=== PATIENT | female | born 1970 | race Caucasian/White ===

== ENCOUNTER 2021-10-08 20:20 | Inpatient (IN) | payer OTHER ==
[~2021-10-08] VITALS: Ht 157.5 cm; Wt 68.2 kg
[2021-10-08] MEDS ORDERED: HYDROcodone/acetaminophen 10/325mg tab PO ONE (21:35)
[2021-10-08] MEDS ORDERED: morphine 4 MG/ML inj SYRINge IV ONE (23:35)
[2021-10-08] MEDS ORDERED: ondansetron/PF 4mg/2ml inj IV ONE (23:35)
[2021-10-09] MEDS ORDERED: morphine 4 MG/ML inj SYRINge ONE (00:02)
[2021-10-09] MEDS ORDERED: morphine 2 MG/ML inj. syringe ONE (00:05)
[2021-10-09] MEDS ORDERED: magnesium hydroxide 30ml (MOM) UD suspension PO PRN (00:55)
[2021-10-09] MEDS ORDERED: HYDROcodone/acetaminophen 5mg/325mg tablet PO PRN (00:55)
[2021-10-09] MEDS ORDERED: diphenhydrAMINE 50 mg/ml inj IV PRN (00:55)
[2021-10-09] MEDS ORDERED: mag hydrox/Alum hydrox/simeth 30ml oral suspension PO PRN (00:55)
[2021-10-09] MEDS ORDERED: morphine 2 MG/ML inj. syringe IV PRN (00:55)
[2021-10-09] MEDS ORDERED: ondansetron 4mg rapidly disintigrating tab PO PRN (00:55)
[2021-10-09] MEDS ORDERED: ondansetron/PF 4mg/2ml inj IV PRN (00:55)
[2021-10-09] MEDS ORDERED: acetaminophen 325mg tablet PO PRN ×2 (00:55)
[2021-10-09] MEDS ORDERED: diphenhydrAMINE 25mg capsule PO PRN (00:55)
[2021-10-09] MEDS ORDERED: bisacodyl 10mg suppository rectal RC PRN (00:55)
[2021-10-09] MEDS ORDERED: acetaminophen 650mg rectal suppository RC PRN (00:55)
[2021-10-09] MEDS: normal saline 1000ml 1,000 ML IV SCH ×3 (01:12→20:55)
[2021-10-09] MEDS ORDERED: FLUT16SP26 BOTHNARES (01:17)
[2021-10-09] MEDS ORDERED: CITA40TA17 PO (01:17)
[2021-10-09] MEDS ORDERED: VARE1TAB24 PO (01:17)
[2021-10-09] MEDS ORDERED: ADV50100 IH (01:17)
[2021-10-09 02:32] LABS: HEMOGLOBIN A1C 5.1 % (4.5-6.2)
[2021-10-09 02:40] LABS: APTT 26 SECONDS (22-32)
[2021-10-09 02:48] LABS: ETHANOL < 0.010 GM/DL (0.0-0.010); MAGNESIUM 1.7 MG/DL (1.5-2.4); PHOSPHORUS 3.6 MG/DL (2.3-4.5)
[2021-10-09] MEDS: HYDROmorphone inj. 0.5 MG/0.5 ML DISP.SYRIN IV PRN ×2 (03:41→08:45)
[2021-10-09] MEDS: morphine 2 MG/ML inj. syringe IV PRN ×3 (05:36→16:20)
[2021-10-09 06:10] LABS: CLARITY,URINE SLIGHTLY CLOUDY (Clear); COLOR,URINE YELLOW (Yellow); GLUCOSE, URINE NEGATIVE (Neg); KETONES,URINE NEGATIVE (Neg); LEUKOCYTE ESTERASE ,URINE NEGATIVE (Neg); NITRITES, URINE POSITIVE (Neg); OCCULT BLOOD,URINE SMALL (Neg); PH,URINE 5.5 (4.8-8.0); PROTEIN,URINE NEGATIVE (Neg); UA COLLECTION TYPE CLN CATCH MIDSTREAM; UROBILINOGEN,URINE 0.2 E.U/dL (0.2-1.0)
[2021-10-09 06:17] LABS: BACTERIA,URINE 4+ /HPF (Neg); MUCUS STRANDS NONE SEEN /LPF (Neg); SQUAMOUS EPITHELIAL CELL,UR FEW /LPF (FEW)
[2021-10-09] MEDS: albuterol 2.5 MG/3 ML nebule NEB SCH ×4 (07:05→19:56)
[2021-10-09] MEDS: budesonide 0.5mg/2ml UD nebule IH SCH ×2 (07:05→19:56)
[2021-10-09] MEDS: VARENICLINE TARTRATE 1 MG PO SCH ×2 (08:00→20:00)
[2021-10-09] MEDS: fluticasone nasal spray 16GM bottle NS SCH (08:00)
[2021-10-09] MEDS: docusate sod 100mg capsule PO SCH ×2 (08:00→20:00)
[2021-10-09] MEDS: HYDROcodone/acetaminophen 10/325mg tab PO PRN ×2 (08:27→12:37)
[2021-10-09] MEDS: citalopram 20mg tablet PO SCH (08:31)
[2021-10-09 08:37] LABS: URINE AMPHETAMINE SCREEN NEGATIVE (Neg); URINE BARBITUATE SCREEN NEGATIVE (Neg); URINE BENZODIAZEPINES SCREEN POSITIVE (Neg); URINE CANNABINOID SCREEN NEGATIVE (Neg); URINE COCAINE SCREEN NEGATIVE (Neg); URINE METHADONE SCREEN NEGATIVE (Neg); URINE OPIATE SCREEN POSITIVE (Neg); URINE PHENCYCLIDINE SCREEN NEGATIVE (Neg)
[2021-10-09] MEDS ORDERED: potassium CL 10mEq/100ml bag 100 ML IV PRN (10:45)
[2021-10-09] MEDS ORDERED: magnesium 4gm in 100ml NS 100 ML IV PRN (10:45)
[2021-10-09] MEDS ORDERED: potassium Cl 20 mEq SR tablet PO PRN ×2 (10:45)
[2021-10-09] MEDS ORDERED: magnesium Cl slow-release 64mg tablet PO PRN (10:45)
[2021-10-09] MEDS: cyclobenzaprine 10mg tablet PO PRN (10:48)
--- NOTE | 2021-10-09 13:37 | NUR ---
PT. REFUSED 1400 SVN. NO WHEEZING-WANTED TO SLEEP
--- NOTE | 2021-10-09 16:28 | NUR ---
RELIEVING RN FOR BREAK, PT IS RESTING QUIETLY ON HOSPITAL BED, RESP EVEN AND UNLABORED, WAITING FOR BED ASSIGNMENT,
--- NOTE | 2021-10-09 17:44 | NUR ---
pt was able to sit up in the bed today. pt placed in hospital bed. pt tolerated some movement which is an improvement from this morning.
[2021-10-09] MEDS: K and/or MAG REPLACEMENT MC SCH (20:00)
[2021-10-09] MEDS ORDERED: temazepam 15mg capsule PO PRN (21:00)
[2021-10-10] MEDS: albuterol 2.5 MG/3 ML nebule NEB SCH ×5 (03:00→20:39)
[2021-10-10] MEDS: cyclobenzaprine 10mg tablet PO PRN (06:36)
[2021-10-10 07:32] LABS: BASOPHILS % (AUTO) 0.4 % (0-1); EOSINOPHILS % (AUTO) 0 % (0-6); HEMATOCRIT 29.9 % (35.0-45.0); HEMOGLOBIN 10.2 g/dl (12.0-16.0); LYMPHOCYTES # (AUTO) 0.4 X10'3 (1.1-4.8); LYMPHOCYTES % (AUTO) 8.1 % (21-51); MEAN CORPUSCULAR HEMOGLOBIN 30.3 PG (27.0-31.0); MEAN CORPUSCULAR HGB CONC 34.2 g/dL (33.0-36.5); MEAN CORPUSCULAR VOLUME 88.7 FL (78-98); MEAN PLATELET VOLUME 7.7 FL (7.4-10.4); MONOCYTES # (AUTO) 0.3 X10'3 (0-0.9); NEUTROPHILS # (AUTO) 4.1 X10'3 (1.8-7.7); NEUTROPHILS % (AUTO) 84.5 % (42-75); PLATELET COUNT 164 X10'3 (140-440); RED BLOOD COUNT 3.37 X10'6 (4.20-5.60); RED CELL DISTRIBUTION WIDTH 13.6 % (11.5-14.5); WHITE BLOOD COUNT 4.8 X10'3 (4.5-11.0)
[2021-10-10] MEDS: VARENICLINE TARTRATE 1 MG PO SCH ×2 (07:35→20:00)
[2021-10-10] MEDS: fluticasone nasal spray 16GM bottle NS SCH (07:36)
[2021-10-10] MEDS: budesonide 0.5mg/2ml UD nebule IH SCH ×3 (07:44→20:39)
[2021-10-10] MEDS: citalopram 20mg tablet PO SCH (07:45)
[2021-10-10] MEDS: docusate sod 100mg capsule PO SCH (07:45)
[2021-10-10] MEDS: normal saline 1000ml 1,000 ML IV SCH ×2 (07:46→17:08)
[2021-10-10 07:59] LABS: ALANINE AMINOTRANSFERASE 12 U/L (12-78); ALBUMIN 2.6 G/DL (3.4-5.0); ALBUMIN/GLOBULIN RATIO 0.8 (1.1-1.5); ALKALINE PHOSPHATASE 48 IU/L (46-116); ANION GAP 9 (8-16); ASPARTATE AMINO TRANSFERASE 15 U/L (10-37); BILIRUBIN,TOTAL 0.4 MG/DL (0.1-1.0); BLOOD UREA NITROGEN 5 MG/DL (7-18); BUN/CREATININE RATIO 7.9 (6.6-38.0); CALCIUM 7.8 MG/DL (8.5-10.1); CHLORIDE 105 MMOL/L (99-107); CHOL/HDL RATIO 2.4 (0.00-4.99); CHOLESTEROL 164 MG/DL (0-200); CREATININE 0.63 MG/DL (0.40-0.90); GLUCOSE 93 MG/DL (70-104); HDL CHOLESTEROL 69 MG/DL (35-60); LDL CHOLESTEROL 73 MG/DL (50-100); MAGNESIUM 1.2 MG/DL (1.5-2.4); PHOSPHORUS 1.6 MG/DL (2.3-4.5); POTASSIUM 3.4 MMOL/L (3.5-5.1); SODIUM 137 MMOL/L (135-145); TOTAL CARBON DIOXIDE 23.3 MMOL/L (24-32); TOTAL PROTEIN 5.8 G/DL (6.4-8.2); TRIGLYCERIDES 67 MG/DL (20-135); eGFR > 90 ML/MIN
[2021-10-10] MEDS: K and/or MAG REPLACEMENT MC SCH ×2 (08:00→20:00)
--- NOTE | 2021-10-10 12:04 | NUR ---
PT TO MRI
[2021-10-10] MEDS ORDERED: cyclobenzaprine 10mg tablet PO PRN (16:00)
[2021-10-10 19:48] VITALS: BP 115/63
[2021-10-10 22:00] VITALS: BP 111/66
[2021-10-10] MEDS: heparin, porcine 5000 units/ml vial SQ SCH (22:00)
[2021-10-10] MEDS: ciprofloxacin 250mg tablet PO SCH (22:01)
[2021-10-10] MEDS: HYDROcodone/acetaminophen 10/325mg tab PO PRN (22:01)
[2021-10-11] MEDS: normal saline 1000ml 1,000 ML IV SCH ×2 (02:55→12:55)
[2021-10-11] MEDS: albuterol 2.5 MG/3 ML nebule NEB SCH ×3 (03:00→14:28)
[2021-10-11] MEDS: HYDROcodone/acetaminophen 10/325mg tab PO PRN ×2 (05:37→13:43)
[2021-10-11 06:00] VITALS: BP 111/66
[2021-10-11 07:13] LABS: BASOPHILS % (AUTO) 0.6 % (0-1); EOSINOPHILS % (AUTO) 0.2 % (0-6); HEMATOCRIT 30.7 % (35.0-45.0); HEMOGLOBIN 10.5 g/dl (12.0-16.0); LYMPHOCYTES # (AUTO) 0.8 X10'3 (1.1-4.8); LYMPHOCYTES % (AUTO) 14.5 % (21-51); MEAN PLATELET VOLUME 7.8 FL (7.4-10.4); MONOCYTES # (AUTO) 0.5 X10'3 (0-0.9); MONOCYTES % (AUTO) 8.2 % (2-12); NEUTROPHILS # (AUTO) 4.5 X10'3 (1.8-7.7); NEUTROPHILS % (AUTO) 76.5 % (42-75); PLATELET COUNT 172 X10'3 (140-440); RED BLOOD COUNT 3.49 X10'6 (4.20-5.60); RED CELL DISTRIBUTION WIDTH 13.6 % (11.5-14.5); WHITE BLOOD COUNT 5.9 X10'3 (4.5-11.0)
[2021-10-11 07:25] LABS: ALANINE AMINOTRANSFERASE 17 U/L (12-78); ALBUMIN 2.7 G/DL (3.4-5.0); ALBUMIN/GLOBULIN RATIO 0.7 (1.1-1.5); ALKALINE PHOSPHATASE 49 IU/L (46-116); ANION GAP 8 (8-16); ASPARTATE AMINO TRANSFERASE 24 U/L (10-37); BILIRUBIN,TOTAL 0.2 MG/DL (0.1-1.0); BLOOD UREA NITROGEN 5 MG/DL (7-18); BUN/CREATININE RATIO 8.6 (6.6-38.0); CALCIUM 8.1 MG/DL (8.5-10.1); CHLORIDE 104 MMOL/L (99-107); CREATININE 0.58 MG/DL (0.40-0.90); GLUCOSE 87 MG/DL (70-104); MAGNESIUM 1.5 MG/DL (1.5-2.4); PHOSPHORUS 1.9 MG/DL (2.3-4.5); POTASSIUM 3.1 MMOL/L (3.5-5.1); SODIUM 137 MMOL/L (135-145); TOTAL CARBON DIOXIDE 24.6 MMOL/L (24-32); TOTAL PROTEIN 6.4 G/DL (6.4-8.2); eGFR > 90 ML/MIN
[2021-10-11] MEDS: fluticasone nasal spray 16GM bottle NS SCH (08:00)
[2021-10-11] MEDS: budesonide 0.5mg/2ml UD nebule IH SCH (08:00)
[2021-10-11] MEDS: VARENICLINE TARTRATE 1 MG PO SCH (08:00)
[2021-10-11] MEDS: ciprofloxacin 250mg tablet PO SCH (08:06)
[2021-10-11] MEDS: heparin, porcine 5000 units/ml vial SQ SCH (08:08)
[2021-10-11] MEDS: citalopram 20mg tablet PO SCH (08:08)
[2021-10-11] MEDS: K and/or MAG REPLACEMENT MC SCH (08:20)
[2021-10-11 10:00] VITALS: BP 113/64
[2021-10-11] MEDS ORDERED: CIPR250T4 PO (11:03)
[2021-10-11] MEDS ORDERED: CYCL-1 PO (11:03)
[2021-10-11] MEDS ORDERED: IBUP-1985 PO (11:03)
[2021-10-11] MEDS ORDERED: ACET-1008 PO (11:03)
[2021-10-11] MEDS ORDERED: HYDR-3965 PO ×3 (11:08→13:21)
--- NOTE | 2021-10-11 16:38 | NUR ---
patient discharged in stable condition to home via taxi, iv removed tip intact no complications. Belongings sent with pt. pt discharged at 1630.
== END 2021-10-11 16:31 | disposition home or self-care (01) | DRG 552 ==
LOC: ER 20:21 → ED HOLD 10-09 01:00 → ORTHO 4S 10-10 19:27
PROVIDERS: ADMIT Family Medicine; ATTEND Family Medicine
DX: S22.080A Wedge compression fracture of T11-T12 vertebra, initial encounter for closed fracture (principal); N39.0 Urinary tract infection, site not specified; F17.200 Nicotine dependence, unspecified, uncomplicated; R26.9 Unspecified abnormalities of gait and mobility; W11.XXXA Fall on and from ladder, initial encounter; B96.1 Klebsiella pneumoniae [K. pneumoniae] as the cause of diseases classified elsewhere; E86.1 Hypovolemia; F32.A Depression, unspecified; S00.93XA Contusion of unspecified part of head, initial encounter; Y93.89 Activity, other specified; Y92.89 Other specified places as the place of occurrence of the external cause; Y99.8 Other external cause status; Z71.6 Tobacco abuse counseling
CPT/HCPCS: 36415; 70450; 70551; 71045; 72125; 72131; 72141; 72146; 80053; 80061; 80305; 80320; 81001; 83036; 83735; 83880; 84100; 85025; 85610; 85730; 87077; 87081; 87088; 87186; 92508; 92616; 94640; 94760; 97116; 97162; 97530; 99285; A4615; G0378; J1170; J1644; J2270; J2405; J7030; L0172